=== PATIENT | male | born 1955 | race Two or more races ===

== ENCOUNTER 2016-09-13 11:50 | Emergency (ER) | payer MEDICAID ==
[~2016-09-13] VITALS: Ht 185.4 cm; Wt 90.7 kg
--- NOTE | 2016-09-13 12:00 | NUR ---
Presents self to ed weakness, dizziness, nausea, vomiting x 5 days. vss. will cont to monitor
[2016-09-13] MEDS ORDERED: MECLIZINE HCL 25 MG TABLET ONE (12:21)
[2016-09-13] MEDS ORDERED: IV NS 0.9% 500 ML IV ONE (12:22)
[2016-09-13] MEDS ORDERED: IV SET PRIMARY PUMP SET 1 EA INFUS.SET MC ONE (12:22)
[2016-09-13 12:26] LABS: BASOPHILS # (AUTO) 0.1 /CMM (0.0-0.2); BASOPHILS % (AUTO) 0.6 % (0.0-2.0); EOSINOPHILS # (AUTO) 0.1 /CMM (0.0-0.7); EOSINOPHILS % (AUTO) 0.9 % (0.0-6.0); HEMATOCRIT 45 % (39-51); HEMOGLOBIN 14.6 g/dL (13.5-17.5); LYMPHOCYTES % (AUTO) 24.2 % (20.0-44.0); MEAN CORPUSCULAR HEMOGLOBIN 32 PG (26.0-33.0); MEAN CORPUSCULAR HGB CONC 33 g/dl (31.0-36.0); MEAN CORPUSCULAR VOLUME 97 fL (80-96); MONOCYTES # (AUTO) 0.6 /CMM (0.1-1.30); MONOCYTES % (AUTO) 7.3 % (2.0-12.0); NEUTROPHILS # (AUTO) 5.6 /CMM (1.8-8.9); PLATELET COUNT (AUTO) 343 /CMM (150-450); RDW COEFFICIENT OF VARIATION 12.1 (11.5-15.0); RED BLOOD CELL COUNT(AUTO) 4.64 MIL/uL (4.5-6.0); WHITE BLOOD COUNT (AUTO) 8.4 K/uL (4.3-11.0)
[2016-09-13] MEDS ORDERED: IV NS 0.9% 500 ML BAG IV ONE (12:30)
[2016-09-13] MEDS ORDERED: MECLIZINE HCL 12.5 MG TABLET PO ONE (12:30)
--- NOTE | 2016-09-13 12:31 | NUR ---
medicated patient as ordered
[2016-09-13 12:36] LABS: CALCIUM, SERUM 9.5 mg/dL (8.5-10.1); CARBON DIOXIDE 20 mmol/L (21-32); CHLORIDE 103 mmol/L (98-107); CREATININE 0.7 mg/dL (0.6-1.3); GFR 115 mL/min (>60); GLUCOSE 108 mg/dL (74-106); POTASSIUM 4.1 mmol/L (3.5-5.1); SODIUM SERUM 137 mmol/L (136-145); UREA NITROGEN, BLOOD 18 mg/dL (7-18)
[2016-09-13 12:41] LABS: INR 1.02 (0.87-1.13); PROTHROMBIN TIME 10.6 SECS (9.5-12.7)
[2016-09-13 12:44] LABS: TROPONIN I < 0.017 ng/mL (0.00-0.056)
[2016-09-13 12:49] LABS: ALANINE AMINOTRANSFERASE 32 U/L (12-78); ALBUMIN 3.9 g/dL (3.4-5.0); ALKALINE PHOSPHATASE 70 U/L (46-116); ASPARTATE AMINOTRANSFERASE 23 U/L (15-37); B-TYPE NATRIURETIC PEPTIDE 82 PG/ML (0-125); BILIRUBIN,DIRECT 0.1 mg/dL (0.0-0.2); BILIRUBIN,TOTAL 0.5 mg/dL (0.2-1.0); TOTAL PROTEIN, SERUM 7.9 g/dL (6.4-8.2)
[2016-09-13] MEDS ORDERED: DIAZEPAM 5 MG/ML 2 ML DISP.SYRIN ONE (14:32)
[2016-09-13] MEDS: DIAZEPAM 5 MG/ML 2 ML DISP.SYRIN IV ONE ×2 (14:38→14:42)
[2016-09-13 14:42] VITALS: BP 128/70
--- NOTE | 2016-09-13 14:43 | NUR ---
Patient discharged to home in stable condition. Written and verbal after care instructions given. Patient verbalizes understanding of instruction.
== END 2016-09-13 14:43 | disposition home or self-care (01) ==
LOC: ER 11:55
DX: R42 Dizziness and giddiness (principal); R79.89 Other specified abnormal findings of blood chemistry; I10 Essential (primary) hypertension
CPT/HCPCS: 36415; 71010; 80048; 80076; 83880; 84484; 85025; 85730; 93005; 96360; 96372; 99285; A4606; J3360; J7040; J8597; Z7610

== ENCOUNTER 2019-02-06 03:24 | Emergency (ER) | payer OTHER ==
[~2019-02-06] VITALS: Ht 188 cm; Wt 88.5 kg
--- NOTE | 2019-02-06 03:35 | NUR ---
PT BIBSELF C/O ABDOMINAL PAIN. 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 LAST DOSE NAPROXEN X8HR MEASUREMENT COORDINATOR. PT AOX4. NAD NOTED. RESP EVEN AND UNLABORED. PT IS DIAPHORETIC. PT ON MONITOR IN BED 10. WILL CONTINUE TO MONITOR.
--- NOTE | 2019-02-06 03:53 | NUR ---
PHLEB AT BEDSIDE FOR LAB DRAW
[2019-02-06 04:04] LABS: BASOPHILS # (AUTO) 0.1 /CMM (0.0-0.2); BASOPHILS % (AUTO) 0.5 % (0.0-2.0); EOSINOPHILS % (AUTO) 2.3 % (0.0-6.0); HEMATOCRIT 32 % (39-51); HEMOGLOBIN 10.9 g/dL (13.5-17.5); LYMPHOCYTES # (AUTO) 1.4 /CMM (0.8-4.8); LYMPHOCYTES % (AUTO) 10.3 % (20.0-44.0); MEAN CORPUSCULAR HGB CONC 34 g/dl (31.0-36.0); MEAN CORPUSCULAR VOLUME 98 fL (80-96); MONOCYTES # (AUTO) 1.1 /CMM (0.1-1.30); MONOCYTES % (AUTO) 8.2 % (2.0-12.0); NEUTROPHILS # (AUTO) 10.4 /CMM (1.8-8.9); NEUTROPHILS % (AUTO) 78.7 % (43.0-81.0); PLATELET COUNT (AUTO) 377 /CMM (150-450); RED BLOOD CELL COUNT(AUTO) 3.28 MIL/uL (4.5-6.0); WHITE BLOOD COUNT (AUTO) 13.2 K/uL (4.3-11.0)
[2019-02-06 04:12] LABS: CALCIUM, SERUM 8.9 mg/dL (8.5-10.1); CREATININE 0.9 mg/dL (0.6-1.3); POTASSIUM 3.8 mmol/L (3.5-5.1)
[2019-02-06] MEDS ORDERED: IV NS 0.9% 1,000 ML IV PRN (04:30)
--- NOTE | 2019-02-06 04:35 | NUR ---
RAC20G INITIATED. PT TOLERATED WELL. 1L 0.9% NS END TIME [id number]
--- NOTE | 2019-02-06 06:36 | NUR ---
PHLEB AT BEDSIDE FOR REPEAT BLOOD DRAW
[2019-02-06 07:08] LABS: CALCIUM, SERUM 8.4 mg/dL (8.5-10.1); CREATININE 0.8 mg/dL (0.6-1.3); POTASSIUM 3.7 mmol/L (3.5-5.1)
--- NOTE | 2019-02-06 07:26 | NUR ---
REPORT GIVEN TO MICH MORALES FOR [facility]
--- NOTE | 2019-02-06 08:02 | NUR ---
Patient discharged to home in stable condition. Written and verbal after care instructions given. Patient verbalizes understanding of instruction.IV removed. Catheter intact and site benign. Pressure and 4x4 applied to site. No bleeding noted.
[2019-02-06 08:03] VITALS: BP 135/84
== END 2019-02-06 08:04 | disposition home or self-care (01) ==
LOC: ER 03:28
DX: K59.00 Constipation, unspecified (principal); I10 Essential (primary) hypertension; G89.29 Other chronic pain
CPT/HCPCS: 36415; 80048 ×2; 85025; 99283; J7030